=== PATIENT | male | born 1990 | race Two or more races ===

== ENCOUNTER 2018-06-30 23:13 | Emergency (ER) | payer MEDICAID, OTHER ==
[~2018-06-30] VITALS: Ht 175.3 cm; Wt 90.7 kg
[2018-06-30 23:30] VITALS: BP 125/93
== END 2018-07-01 00:37 | disposition home or self-care (01) ==
LOC: ER 23:15
DX: S00.01XA Abrasion of scalp, initial encounter (principal); W22.8XXA Striking against or struck by other objects, initial encounter; Y93.89 Activity, other specified; Y92.69 Other specified industrial and construction area as the place of occurrence of the external cause; Y99.8 Other external cause status

== ENCOUNTER 2023-12-01 14:46 | Emergency (ER) | payer MEDICAID, OTHER ==
[~2023-12-01] VITALS: Ht 175.3 cm; Wt 112.0 kg
[2023-12-01] MEDS: KETOROLAC TROMETH 60MG/2ML VIAL IM ONE (19:13)
[2023-12-01 19:24] VITALS: BP 148/101; PULSE 107; RESP 16; TEMP 98.9; O2SAT 99
[2023-12-01] MEDS ORDERED: AMOX875T4 PO (19:36)
[2023-12-01] MEDS ORDERED: IBUP-1456 PO (19:36)
[2023-12-01] MEDS: LIDOCAINE 1% HCL (LOCAL ANESTH.) INJ 20ML MDV ID ONE (19:54)
[2023-12-01] MEDS: cefTRIAXone SOD 1,000 MG VL IM ONE (19:59)
[2023-12-01] MEDS ORDERED: cefTRIAXone SOD 1,000 MG VL IM ONE (20:30)
[2023-12-01] MEDS ORDERED: KETOROLAC TROMETH 60MG/2ML VIAL IM ONE (20:30)
== END 2023-12-01 19:55 | disposition home or self-care (01) ==
LOC: ER 14:46
DX: S91.311A Laceration without foreign body, right foot, initial encounter (principal); S90.121A Contusion of right lesser toe(s) without damage to nail, initial encounter; Z79.899 Other long term (current) drug therapy; W22.8XXA Striking against or struck by other objects, initial encounter; Y93.89 Activity, other specified; Y92.89 Other specified places as the place of occurrence of the external cause; Y99.8 Other external cause status
CPT/HCPCS: 11730; 12002; 73630; 96372; 99284; J0696; J1885; J2001